=== PATIENT | female | born 1965 | race Caucasian/White ===

== ENCOUNTER → 2016-12-17 | Outpatient (CLI) | payer MEDICARE, OTHER ==
[~2016-12-17] MED LIST: ALBUTEROL17 GM INH; ALDACTONE25 MG PO; ALPRAZOLAM PO; ASPIRIN81 M1 PO; AUGMENTIN PO; BACLOFEN20 M1 PO; BETASERON; BETASERON SUBQ; BUTISOL SODIUM30 MG PO; CALCIUM 600 MG1 TA3 PO; CALCIUM 600+D T1 TA1 PO; COLACE PO; COLESTID PO; COUMADIN PO; COZAAR100 MG PO; DARVOCET-N 1001 TAB PO; DDAVP0.1 MG PO; DDAVP0.2 M1 PO; DDAVP0.2 MG PO; DELSYM30 MG/5 M1 PO; DEPAKOTE PO; DEPAKOTE250 MG PO; DESMOPRESSIN A0.2 MG PO; DYAZIDE 37.5/251 CAP; DYAZIDE 37.5/251 CAP PO; DYAZIDE 371 CAP 37.5 PO; FIBER THERAPY; FIBER THERAPY PO; FLEXERIL10 MG PO; FLOMAX0.4 M1 PO; FUROSEMIDE40 MG PO; GLUCOPHAGE XR500 MG PO; GLUCOPHAGE500 MG PO; GLYCOLAX POWDER; HUMIBID1200 MG PO; JANUMET 50-1,01 EACH; KCL; KCL PO; KEFLEX500 M1 PO; KEFLEX500 M2 PO; KLOR-CON PO; LASIX PO; LEVAQUIN PO; LIPITOR40 MG PO; LORTAB 5/500 TA1 TA1 PO; LORTAB 7.5-3251 EACH PO; LORTAB 7.5-5001 TAB PO; LOVENOX SUBQ; MACROBID100 M1 PO; METAMUCIL0.52 G PO; METFORMIN HCL500 M1 PO; METOPROLOL SUC100 MG PO; MIDRIN CAPSULE1 CA1; MIDRIN CAPSULE1 CA1 PO; MIDRIN CAPSULE1 CAP PO; MILK OF MAGNESIA PO; MIRALAX255 GM PO; MULTIVITAMIN1 UDCAP PO; NABUMETONE PO; NEURONTIN PO; NORCO 5/325 TAB1 TAB PO; OXYTROL; OYSTER SHELL C1 EAC3 PO; OYSTER SHELL C500 MG PO; PANTOPRAZOLE SO40 MG PO; PHENERGAN PO; PREDNISONE PO; PROMETHAZINE V118 M1 PO; PROVIGIL; PROVIGIL PO; PROVIGIL100 MG PO; PROZAC PO; QUETIAPINE FUM100 MG PO; REGLAN PO; REMERON15 MG PO; SANCTURA PO; SANCTURA XR60 MG PO; SANCTURA20 M1 PO; SEROQUEL PO; SEROQUEL XR200 MG DOB; SEROQUEL50 M1 PO; SILVADENE TOP; SIMVASTATIN20 MG PO; SYMBICORT 160/4.6 G1 IH; TEGRETOL PO; TEGRETOL XR200 M1 PO; TEGRETOL-XR100 MG PO; TOPROL XL PO; TOPROL XL100 MG PO; TROSPIUM CHLORI20 MG PO; TYLENOL325 M1 PO; TYSABRI; VIBRAMYCIN100 M1 PO; VICODIN 5/1 TAB 5/50 PO; VITAMIN D-32000 UNI1 PO; XANAX1 MG PO; ZAROXYLYN PO; ZITHROMAX PO; [UNRECOGNIZED DRUG - OTHER] INJ; [UNRECOGNIZED DRUG - REMARK]; [UNRECOGNIZED DRUG - REMARK] PO
[2016-12-17 11:31] LABS: BASOPHIL% 0.4 % (0-2.5); EOSINOPHIL# 0.3 X10e3 (0-0.7); EOSINOPHIL% 4.1 % (0.0-7.0); HEMATOCRIT 35.2 % (35.0-45.0); HEMOGLOBIN 11.9 gm/dL (12.0-16.0); LYMPHOCYTE# 2.1 X10e3 (1.0-3.5); LYMPHOCYTE% 26.5 % (17.0-45.0); MEAN CELL VOLUME 90.2 FL (83-96); MEAN CORPUSCULAR HEMOGLOBIN 30.5 PG (28-34); MEAN CORPUSCULAR HGB CONC 33.8 g/dL (30-36); MEAN PLATELET VOLUME 8.2 FL (6.5-11.5); MONOCYTE# 0.6 X10e3 (0-1.0); NEUTROPHIL# 4.8 X10e3 (1.5-7.1); PLATELET COUNT 148 X10e3 (140-420); RED CELL DISTRIBUTION WIDTH 15.2 % (11.0-15.5); WHITE BLOOD COUNT 7.9 X10e3 (4.0-10.5)
[2016-12-17 11:37] LABS: DIFF IND NO
[2016-12-17 12:27] LABS: BLOOD UREA NITROGEN 9 mg/dL (9-23); CALCIUM SERUM 8.3 mg/dL (8.4-10.2); CARBON DIOXIDE 28 mmol/L (22-31); CHLORIDE 103 mmol/L (100-111); CREATININE SERUM 0.3 mg/dL (0.6-1.4); GLOM FILT RATE Estimated ABOVE60 mL/min (>60); GLUCOSE FASTING 91 mg/dL (70-110); SODIUM 136 mmol/L (135-145)
== END | disposition home or self-care (01) ==
LOC: CSSDAY 10:52
PROVIDERS: Nurse Practitioner
DX: G35 Multiple sclerosis (principal); Z79.899 Other long term (current) drug therapy; Z88.1 Allergy status to other antibiotic agents; Z88.8 Allergy status to other drugs, medicaments and biological substances
CPT/HCPCS: 80048; 85025; 96413; J1642; J2323

== ENCOUNTER 2017-01-11 16:55 | Emergency (ER) | payer MEDICARE, OTHER ==
[~2017-01-11 16:55] MED LIST changes: -ALBUTEROL17 GM INH; -BACLOFEN20 M1 PO; -COZAAR100 MG PO; -FLOMAX0.4 M1 PO; -JANUMET 50-1,01 EACH; -LIPITOR40 MG PO; -LORTAB 7.5-3251 EACH PO; -METOPROLOL SUC100 MG PO; -OYSTER SHELL C1 EAC3 PO; -REGLAN PO; -SEROQUEL50 M1 PO; -SYMBICORT 160/4.6 G1 IH; -TEGRETOL-XR100 MG PO; -TROSPIUM CHLORI20 MG PO; -VITAMIN D-32000 UNI1 PO; -XANAX1 MG PO; -[UNRECOGNIZED DRUG - OTHER] INJ
[2017-01-11 17:54] LABS: BASOPHIL# 0.1 X10e3 (0-0.3); BASOPHIL% 0.5 % (0-2.5); EOSINOPHIL# 0.4 X10e3 (0-0.7); EOSINOPHIL% 3.4 % (0.0-7.0); HEMATOCRIT 39.3 % (35.0-45.0); HEMOGLOBIN 13.1 gm/dL (12.0-16.0); LYMPHOCYTE# 2.5 X10e3 (1.0-3.5); LYMPHOCYTE% 24.5 % (17.0-45.0); MEAN CELL VOLUME 89.1 FL (83-96); MEAN CORPUSCULAR HEMOGLOBIN 29.7 PG (28-34); MEAN CORPUSCULAR HGB CONC 33.4 g/dL (30-36); MEAN PLATELET VOLUME 7.9 FL (6.5-11.5); MONOCYTE# 0.8 X10e3 (0-1.0); MONOCYTE% 7.3 % (3.0-12.0); NEUTROPHIL# 6.7 X10e3 (1.5-7.1); NEUTROPHIL% 64.3 % (40-75); PLATELET COUNT 262 X10e3 (140-420); RED BLOOD COUNT 4.41 X10e (3.90-5.30); RED CELL DISTRIBUTION WIDTH 14.9 % (11.0-15.5); WHITE BLOOD COUNT 10.4 X10e3 (4.0-10.5)
[2017-01-11 18:06] LABS: ALBUMIN SERUM 3.3 g/dL (3.5-5.0); ALKALINE PHOSPHATASE 108 U/L (32-92); ALT (SGPT) 36 U/L (10-40); AST (SGOT) 13 U/L (10-42); BILIRUBIN,TOTAL 0.5 mg/dL (0.2-2.0); BLOOD UREA NITROGEN 7 mg/dL (9-23); CALCIUM SERUM 8.7 mg/dL (8.4-10.2); CARBON DIOXIDE 26 mmol/L (22-31); CHLORIDE 95 mmol/L (100-111); CREATININE SERUM 0.4 mg/dL (0.6-1.4); GLOM FILT RATE Estimated 118.9 mL/min (>60); GLUCOSE FASTING 109 mg/dL (70-110); LIPASE 28 U/L (22-51); POTASSIUM 4.3 mmol/L (3.5-5.1); PROTEIN TOTAL SERUM 6.4 g/dL (6.0-8.3); SODIUM 130 mmol/L (135-145)
[2017-01-11 18:09] LABS: BILIRUBIN, DIRECT <0.1 mg/dL (0.0-0.2); BILIRUBIN,INDIRECT 0.4 mg/dL (0.0-0.9); DIFF IND NO
[2017-07-01] MEDS ORDERED: METOPROLOL SUC100 MG PO (11:33)
[2017-07-01] MEDS ORDERED: XANAX1 MG PO (11:37)
[2017-07-01] MEDS ORDERED: PROZAC PO (11:37)
[2017-07-01] MEDS ORDERED: COZAAR100 MG PO (11:37)
[2017-07-01] MEDS ORDERED: DEPAKOTE PO (11:37)
[2017-07-01] MEDS ORDERED: [UNRECOGNIZED DRUG - OTHER] INJ (11:37)
[2017-07-01] MEDS ORDERED: SEROQUEL50 M1 PO (11:37)
[2017-07-01] MEDS ORDERED: LIPITOR40 MG PO (11:37)
[2017-07-01] MEDS ORDERED: VITAMIN D-32000 UNI1 PO (11:37)
[2017-07-01] MEDS ORDERED: ALBUTEROL17 GM INH (11:38)
[2017-07-01] MEDS ORDERED: FLOMAX0.4 M1 PO (12:15)
[2017-07-01] MEDS ORDERED: SYMBICORT 160/4.6 G1 IH (12:20)
[2017-07-01] MEDS ORDERED: PROVIGIL100 MG PO (12:20)
[2017-07-01] MEDS ORDERED: TEGRETOL-XR100 MG PO (12:21)
[2017-07-01] MEDS ORDERED: LORTAB 7.5-3251 EACH PO (12:28)
[2017-07-01] MEDS ORDERED: OYSTER SHELL C1 EAC3 PO (13:33)
[2017-07-01] MEDS ORDERED: BACLOFEN20 M1 PO (14:25)
[2017-07-01] MEDS ORDERED: TROSPIUM CHLORI20 MG PO (15:29)
[2017-07-01] MEDS ORDERED: JANUMET 50-1,01 EACH (15:30)
[2017-07-01] MEDS ORDERED: REGLAN PO (15:30)
== END 2017-01-11 18:31 | disposition home or self-care (01) ==
LOC: SED 16:55
PROVIDERS: Emergency Medicine
DX: E87.1 Hypo-osmolality and hyponatremia (principal); F17.210 Nicotine dependence, cigarettes, uncomplicated; Z88.8 Allergy status to other drugs, medicaments and biological substances; Z79.899 Other long term (current) drug therapy
CPT/HCPCS: 80048; 80076; 83690; 85025; 99283

== ENCOUNTER → 2017-01-15 | Outpatient (CLI) | payer MEDICARE, OTHER ==
[~2017-01-15] MED LIST changes: +ALBUTEROL17 GM INH; +BACLOFEN20 M1 PO; +COZAAR100 MG PO; +FLOMAX0.4 M1 PO; +JANUMET 50-1,01 EACH; +LIPITOR40 MG PO; +LORTAB 7.5-3251 EACH PO; +METOPROLOL SUC100 MG PO; +OYSTER SHELL C1 EAC3 PO; +REGLAN PO; +SEROQUEL50 M1 PO; +SYMBICORT 160/4.6 G1 IH; +TEGRETOL-XR100 MG PO; +TROSPIUM CHLORI20 MG PO; +VITAMIN D-32000 UNI1 PO; +XANAX1 MG PO; +[UNRECOGNIZED DRUG - OTHER] INJ
== END | disposition home or self-care (01) ==
LOC: CSSDAY 11:05
DX: G35 Multiple sclerosis (principal); Z79.899 Other long term (current) drug therapy; Z88.1 Allergy status to other antibiotic agents; Z88.8 Allergy status to other drugs, medicaments and biological substances
CPT/HCPCS: 96413; J1642; J2323

== ENCOUNTER → 2017-02-11 | Outpatient (CLI) | payer MEDICARE, OTHER | END | disposition home or self-care (01) | LOC: CSSDAY 11:13 | DX: G35 Multiple sclerosis (principal); Z79.899 Other long term (current) drug therapy; Z88.1 Allergy status to other antibiotic agents; Z88.8 Allergy status to other drugs, medicaments and biological substances | CPT/HCPCS: 96413; J1642; J2323 ==

== ENCOUNTER → 2017-02-16 | Outpatient (CLI) | payer MEDICARE, OTHER ==
--- NOTE | ~2017-02-16 | MR17 ---
[facility] A Service of [facility] & [facility] RADIOLOGY TEXT RESULTS PATIENT: TONNY ESTEVEZ LOCATION: [facility] : 61 UNIT #: [id number] AGE: [address]: Meli Kearns APRN SEX: F ORDER DR: [id number] [address] [address] [id number] O MR#: [id number] Acc #: [id number] NAME: TONNY ESTEVEZ : 1965 SEX: F STUDY DATE/TIME: 02/16/2017 13:09 UNIT: [facility] ROOM: STUDY DESCRIPTION: MR Brain WWo Contrast Attending Physician: Meli Kearns Referring Physician: Meli Kearns Ordering Physician: Sondra Kearns R.N. Primary Care Physician: Marcellus Patrick M.D. MRI CENTER REPORT This report is preliminary unless electronic signature is present. EXAM MRI brain with and without contrast, 02/16/17 COMPARISON MRI brain with and without contrast dated 06/25/2016. HISTORY Follow up known multiple sclerosis. Right-sided headache and pressure are present for a couple months. Question relapsing multiple sclerosis. FINDINGS Multisequence multiplanar imaging of the brain was obtained with and without contrast. 17 mL of MultiHance was administered intravenously. Scattered hyperintense T2-signal lesions are noted in the white matter both in the subcortical and periventricular regions. It is confluent and relatively stable. Focal lesions are also noted in the right cerebellar hemisphere and in the brainstem. There are some suspicious scattered lesions noted in the mid brain, lenard and near the region of bilateral facial colliculus extending to bilateral posteromedial middle cerebellar peduncles, inferior cerebellar peduncles, inferior lenard, medulla and cervicomedullary junction. These lesions are best seen in the axial T2 sequences. They are predominantly stable except for some lesions noted in one of the images along the inferior lenard. It could be due to true minimal worsening or due to difference in slice selection. There is mild to moderate right and moderate left mastoid mucosal thickening. Vascular flow voids of the major cerebral arteries and dural venous sinuses are not completely occluded in these thicker slices. Tiny cavum septum pellucidum is seen. S-shaped nasal septal deviation is noted. There is mild paranasal sinus mucosal thickening. Thick slices through the sella and pituitary gland, pineal region and upper cervical spine are grossly unremarkable. [facility]. [facility] A Service of [facility] & [facility] RADIOLOGY TEXT RESULTS PATIENT: TONNY ESTEVEZ LOCATION: [facility] : 61 UNIT #: [id number] AGE: [address]: Meli Kearns APRN SEX: F ORDER DR: IMPRESSION 1. There are scattered multiple hyperintense T2-signal lesions noted throughout the brain which appear to be predominantly stable favoring chronic multiple sclerosis plaques. No obvious enhancing acute plaque is seen. 2. In one image along the inferior lenard, there appear to be slightly more prominent increased T2-signal lesions when compared to the prior study. (Image number 6, series 6). It could be due to difference in slice selection given the relative stability of the other lesions. Minimal increase is next in the differential consideration. 3. No acute stroke, intracranial hemorrhage, hydrocephalus or midline shift. 4. Bilateral mastoid disease. Dictated by... Leodan Delcid M.D. THIS IS AN ELECTRONICALLY VERIFIED REPORT Leodan Delcid M.D. at 02/18/2017 3:14 PM CPR/ea TD: 02/17/2017 12:19 JOB #: [id number] MRI CENTER REPORT Page 1 of 1
== END | disposition home or self-care (01) ==
LOC: SMRI 12:40
DX: G35 Multiple sclerosis (principal); R90.89 Other abnormal findings on diagnostic imaging of central nervous system; H74.93 Unspecified disorder of middle ear and mastoid, bilateral
CPT/HCPCS: 70553; A9581

== ENCOUNTER → 2017-03-11 | Outpatient (CLI) | payer MEDICARE, OTHER | END | disposition home or self-care (01) | LOC: CSSDAY 10:48 | DX: G35 Multiple sclerosis (principal); Z79.899 Other long term (current) drug therapy; Z88.1 Allergy status to other antibiotic agents; Z88.8 Allergy status to other drugs, medicaments and biological substances | CPT/HCPCS: 96413; J1642; J2323 ==

== ENCOUNTER → 2017-04-08 | Outpatient (CLI) | payer MEDICARE, OTHER ==
[2017-04-08 12:22] LABS: BASOPHIL% 0.3 % (0-2.5); DIFF IND NO; EOSINOPHIL# 0.2 X10e3 (0-0.7); EOSINOPHIL% 2.4 % (0.0-7.0); HEMATOCRIT 35.6 % (35.0-45.0); HEMOGLOBIN 11.7 gm/dL (12.0-16.0); LYMPHOCYTE# 2.8 X10e3 (1.0-3.5); LYMPHOCYTE% 31.9 % (17.0-45.0); MEAN CELL VOLUME 90.7 FL (83-96); MEAN CORPUSCULAR HEMOGLOBIN 29.7 PG (28-34); MEAN CORPUSCULAR HGB CONC 32.7 g/dL (30-36); MEAN PLATELET VOLUME 8.3 FL (6.5-11.5); MONOCYTE# 0.6 X10e3 (0-1.0); MONOCYTE% 7.4 % (3.0-12.0); PLATELET COUNT 210 X10e3 (140-420); RED BLOOD COUNT 3.93 X10e (3.90-5.30); WHITE BLOOD COUNT 8.7 X10e3 (4.0-10.5)
[2017-04-08 12:51] LABS: ALBUMIN SERUM 2.7 g/dL (3.5-5.0); BILIRUBIN,TOTAL 0.4 mg/dL (0.2-2.0); BUN/CREATININE RATIO 27.5; CREATININE SERUM 0.4 mg/dL (0.6-1.4); GLOM FILT RATE Estimated 118.1 mL/min (>60); POTASSIUM 4.5 mmol/L (3.5-5.1); PROTEIN TOTAL SERUM 5.4 g/dL (6.0-8.3)
== END | disposition home or self-care (01) ==
LOC: CSSDAY 11:00
PROVIDERS: Nurse Practitioner
DX: G35 Multiple sclerosis (principal); Z79.899 Other long term (current) drug therapy; Z88.1 Allergy status to other antibiotic agents; Z88.8 Allergy status to other drugs, medicaments and biological substances
CPT/HCPCS: 80053; 85025; 96413; J1642; J2323

== ENCOUNTER → 2017-04-15 | Outpatient (CLI) | payer MEDICARE, OTHER ==
--- NOTE | ~2017-04-15 | CR7 ---
[facility]. [facility] A Service of [facility] & [facility] RADIOLOGY TEXT RESULTS PATIENT: TONNY ESTEVEZ LOCATION: [facility] : 61 UNIT #: [id number] AGE: [address]: Bhanu Vance MD SEX: F ORDER DR: [id number] [place] [id number] O MR#: [id number] Acc #: [id number] NAME: TONNY ESTEVEZ : 1965 SEX: F STUDY DATE/TIME: 04/15/2017 12:52 UNIT: [facility] ROOM: STUDY DESCRIPTION: CR Abdomen Single AP View Attending Physician: Bhanu Vance M.D. Referring Physician: Bhanu Vance M.D. Ordering Physician: Bhanu Vance M.D. Primary Care Physician: Marcellus Patrick M.D. MEDICAL IMAGING REPORT This report is preliminary unless electronic signature is present. EXAM AP of the abdomen INDICATIONS Follow up kidney stones. Comparison with 03/25/2017. FINDINGS Stable bilateral kidney stones measuring 6 mm on the right and 7 mm on the left. Right upper quadrant surgical clips. Degenerative changes of the lumbar spine. IMPRESSION Stable bilateral kidney stones. Dictated by... Kyrie Lloyd M.D. THIS IS AN ELECTRONICALLY VERIFIED REPORT Kyrie Lloyd M.D. at 04/16/2017 10:03 AM PHIL/lisa TD: 04/16/2017 01:45 JOB #: [id number] MEDICAL IMAGING REPORT Page 1 of 1
== END | disposition home or self-care (01) ==
LOC: SRAD 12:44
DX: N20.0 Calculus of kidney (principal); N21.0 Calculus in bladder
CPT/HCPCS: 74000

== ENCOUNTER → 2017-05-06 | Outpatient (CLI) | payer MEDICARE, OTHER | END | disposition home or self-care (01) | LOC: CSSDAY 11:00 | DX: G35 Multiple sclerosis (principal); Z79.899 Other long term (current) drug therapy; Z88.1 Allergy status to other antibiotic agents; Z88.8 Allergy status to other drugs, medicaments and biological substances; Z91.09 Other allergy status, other than to drugs and biological substances | CPT/HCPCS: 96413; J1642; J2323 ==

== ENCOUNTER → 2017-05-07 | Outpatient (CLI) | payer MEDICARE, OTHER ==
--- NOTE | ~2017-05-07 | EKG ---
PATIENT: TONNY ESTEVEZ UNIT #: [id number] Ventricular Rate: 80 BPM Atrial Rate: 80 BPM P-R Interval: 114 ms QRS Duration: 76 ms Q-T Interval: 380 ms QTC Calculation(Bezet): 438 ms P Dennison: 33 degrees Calculated R Dennison: 60 degrees Calculated T Dennison: 52 degrees Diagnosis Line: Normal sinus rhythm Diagnosis Line: Normal ECG Diagnosis Line: When compared with ECG of 18-SEP-2015 21:49, Diagnosis Line: Nonspecific T wave abnormality no longer evident Diagnosis Line: in Inferior leads Diagnosis Line: T wave inversion no longer evident in Anterior Diagnosis Line: leads Diagnosis Line: Confirmed by BART WALKER MD ([id number]) on Diagnosis Line: 05/12/2017 8:38:30 AM INTERPRETING MD: AARON DAVALOS
[2017-05-07 15:19] LABS: HEMATOCRIT 36.5 % (35.0-45.0); HEMOGLOBIN 12.3 gm/dL (12.0-16.0); MEAN CELL VOLUME 91.9 FL (83-96); MEAN CORPUSCULAR HGB CONC 33.7 g/dL (30-36); MEAN PLATELET VOLUME 7.9 FL (6.5-11.5); RED BLOOD COUNT 3.97 X10e (3.90-5.30); RED CELL DISTRIBUTION WIDTH 15.9 % (11.0-15.5); WHITE BLOOD COUNT 10.9 X10e3 (4.0-10.5)
[2017-05-07 15:37] LABS: BUN/CREATININE RATIO 27.5; CALCIUM SERUM 8.3 mg/dL (8.4-10.2); CREATININE SERUM 0.4 mg/dL (0.6-1.4); GLOM FILT RATE Estimated 118.1 mL/min (>60); POTASSIUM 3.9 mmol/L (3.5-5.1)
== END | disposition home or self-care (01) ==
LOC: SEKG 15:00
PROVIDERS: Urology
DX: Z01.812 Encounter for preprocedural laboratory examination (principal); N20.0 Calculus of kidney; I10 Essential (primary) hypertension; E11.9 Type 2 diabetes mellitus without complications
CPT/HCPCS: 36415; 80048; 85027; 87086; 87088; 87186; 93005

== ENCOUNTER → 2017-06-03 | Outpatient (CLI) | payer MEDICARE, OTHER | END | disposition home or self-care (01) | LOC: CSSDAY 10:00 | DX: G35 Multiple sclerosis (principal); Z79.899 Other long term (current) drug therapy; Z88.1 Allergy status to other antibiotic agents; Z88.8 Allergy status to other drugs, medicaments and biological substances | CPT/HCPCS: 96413; 96415; J1642; J2323 ==

== ENCOUNTER → 2017-07-01 | Outpatient (CLI) | payer MEDICARE, OTHER ==
[2017-07-01 10:36] LABS: BASOPHIL% 0.6 % (0-2.5); EOSINOPHIL# 0.3 X10e3 (0-0.7); EOSINOPHIL% 3.9 % (0.0-7.0); HEMATOCRIT 35.5 % (35.0-45.0); HEMOGLOBIN 12.1 gm/dL (12.0-16.0); LYMPHOCYTE# 3.1 X10e3 (1.0-3.5); LYMPHOCYTE% 40.3 % (17.0-45.0); MEAN CELL VOLUME 91.3 FL (83-96); MEAN CORPUSCULAR HEMOGLOBIN 31.1 PG (28-34); MEAN CORPUSCULAR HGB CONC 34.1 g/dL (30-36); MEAN PLATELET VOLUME 8.1 FL (6.5-11.5); MONOCYTE# 0.5 X10e3 (0-1.0); MONOCYTE% 6.7 % (3.0-12.0); NEUTROPHIL# 3.8 X10e3 (1.5-7.1); NEUTROPHIL% 48.5 % (40-75); PLATELET COUNT 237 X10e3 (140-420); RED BLOOD COUNT 3.89 X10e (3.90-5.30); RED CELL DISTRIBUTION WIDTH 14.6 % (11.0-15.5); WHITE BLOOD COUNT 7.8 X10e3 (4.0-10.5)
[2017-07-01 10:37] LABS: DIFF IND NO
[2017-07-01 11:03] LABS: ALBUMIN SERUM 2.7 g/dL (3.5-5.0); BILIRUBIN,TOTAL 0.1 mg/dL (0.2-2.0); CALCIUM SERUM 8.2 mg/dL (8.4-10.2); CREATININE SERUM 0.4 mg/dL (0.6-1.4); GLOM FILT RATE Estimated 118.1 mL/min (>60); POTASSIUM 4.2 mmol/L (3.5-5.1); PROTEIN TOTAL SERUM 5.4 g/dL (6.0-8.3)
== END | disposition home or self-care (01) ==
LOC: CSSDAY 09:56
PROVIDERS: Nurse Practitioner
DX: G35 Multiple sclerosis (principal)
CPT/HCPCS: 80053; 85025; 96413; J1642; J2323